=== PATIENT | male | born 1950 | race Caucasian/White ===

== ENCOUNTER → 2019-07-22 11:18 | Outpatient (ROUT) | payer OTHER, SELFPAY ==
[2019-07-22 11:38] LABS: Influenza A - CEPHEID Flu A NEGATIVE (NEGATIVE)
[2019-07-22 11:39] LABS: Influenza B - CEPHEID Flu B NEGATIVE (NEGATIVE)
== END ==
PROVIDERS: Family Provider Family Medicine; PCP Family Medicine; Visit Provider Family Medicine
DX: R05 Cough (principal); R50.9 Fever, unspecified
CPT/HCPCS: 87502

== ENCOUNTER → 2019-10-24 13:23 | Outpatient (CLI) | payer MEDICARE, SELFPAY ==
--- NOTE | 2019-10-24 13:44 | DI.CT.S_ITS ---
PROCEDURE: CT ABDOMEN PELVIS W CON INDICATIONS: unspecified abdominal pain TECHNIQUE: After the administration of oral and intravenous contrast, 5 mm thick sections acquired from the diaphragms to the symphysis. 5 mm thick coronal and sagittal reformats were performed. For radiation dose reduction, the following was used: automated exposure control, adjustment of mA and/or kV according to patient size. COMPARISON: [facility], , CT KUB, 06/06/2006, 14:01. FINDINGS: Image quality: Excellent. ABDOMEN: Lung bases: Lung bases are clear. Heart size is normal. Solid organs: There is hepatic steatosis. Liver is normal in size and enhancement. Gallbladder is normal. Biliary system is non-dilated. Pancreas enhances normally. Spleen is normal in size and enhancement. No adrenal nodules. Kidneys are normal in size and enhancement, without hydronephrosis. There is a 1.3 cm exophytic cortical nodules in the left kidney, most likely a cyst. Peritoneum and bowel: Multiple colonic diverticula present. No CT findings to suggest acute diverticulitis. Normal appendix. Stomach, small bowel, and colon loops are normal in caliber and wall thickness. No free fluid or air. Nodes and vessels: There is mesenteric stranding and numerous small mesenteric lymph nodes. No retroperitoneal or mesenteric adenopathy by size criteria. Aorta and inferior vena cava are normal in caliber. Miscellaneous: No ventral hernias. PELVIS: Genitourinary: Bladder wall thickness is normal. Enlarged prostate. Miscellaneous: No inguinal hernias or adenopathy. Bones: No suspicious bony lesions. Posterior moderate L2 vertebral body compression fracture. IMPRESSION: 1. 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 2. Diverticulosis without diverticulitis. 3. Hepatic steatosis. 3. Old L2 compression fracture of moderate severity. Dictated by: Dameon Crump M.D. on 10/24/2019 at 17:08 Approved by: Dameon Crump M.D. on 10/24/2019 at 17:56
== END ==
PROVIDERS: Family Provider Family Medicine; PCP Family Medicine; Referring Provider Family Medicine; Visit Provider Family Medicine
DX: R10.9 Unspecified abdominal pain (principal); N40.0 Benign prostatic hyperplasia without lower urinary tract symptoms; K76.0 Fatty (change of) liver, not elsewhere classified; K57.90 Diverticulosis of intestine, part unspecified, without perforation or abscess without bleeding; R59.0 Localized enlarged lymph nodes; M48.56XS Collapsed vertebra, not elsewhere classified, lumbar region, sequela of fracture
CPT/HCPCS: 74177; Q9967

== ENCOUNTER → 2020-11-03 09:47 | Outpatient (CLI) | payer MEDICARE, OTHER, SELFPAY ==
[2020-11-03 11:20] LABS: Estimated Glomerular Filt Rate > 60.0 mL/min (>60)
[2020-11-05 14:13] LABS: BUN Creatinine Ratio 16.5 (6-22); Blood Urea Nitrogen 18 mg/dL (9-20)
== END ==
PROVIDERS: PCP Family Medicine; Referring Provider Internal Medicine; Visit Provider Internal Medicine
DX: R93.3 Abnormal findings on diagnostic imaging of other parts of digestive tract (principal); R10.12 Left upper quadrant pain
CPT/HCPCS: 36415; 82565; 84520

== ENCOUNTER → 2020-11-06 09:32 | Outpatient (CLI) | payer MEDICARE, OTHER, SELFPAY ==
--- NOTE | 2020-11-06 10:27 | DI.CT.S_ITS ---
PROCEDURE: CT ABDOMEN PELVIS W CON INDICATIONS: Left upper quadrant pain TECHNIQUE: After the administration of oral Volumen contrast and intravenous contrast, 3 mm thick sections acquired from the diaphragm to the symphysis. Coronal and sagittal 3 mm reformatted images acquired through the small and large bowel. For radiation dose reduction, the following was used: automated exposure control, adjustment of mA and/or kV according to patient size. COMPARISON: [facility], RG, CT KUB, 06/06/2006, 14:01. [facility], CT, CT ABDOMEN PELVIS W CON, 10/24/2019, 14:15. FINDINGS: Image quality: Excellent. ABDOMEN: Lung bases: Lung bases are clear. Heart size is normal. Bowel and peritoneum: Isodense oral contrast is present, and contrast enhanced small bowel loops demonstrate normal wall thickness and caliber. Normal appendix. The transverse colon is redundant. There is mildly increased quantity of solid stool present throughout the colon. There are occasional diverticula in the descending colon and moderate diverticula in the sigmoid. Mild wall thickening of the sigmoid suggesting chronic diverticulitis. No acute inflammatory changes. No free fluid or air. Solid organs: Liver is normal in size and enhancement. Gallbladder is normal . Biliary system is non dilated. The pancreas is normal.. Spleen is normal in size and enhancement. No adrenal nodules. Kidneys demonstrate normal size and enhancement, without hydronephrosis. Cortical exophytic cyst arising from the left kidney. Nodes and vessels: No retroperitoneal or mesenteric adenopathy by size criteria. There is subtle haziness at the base of the small bowel mesentery with mildly prominent, but non bulky adenopathy. Aorta and inferior vena cava are normal in caliber. Moderate abdominal aortic atherosclerotic calcification. Miscellaneous: No ventral hernias. PELVIS: Genitourinary: Mild diffuse bladder wall thickening, nonspecific. Moderate prostatomegaly. Miscellaneous: No inguinal hernias or adenopathy. Bones: No suspicious bony lesions. Chronic appearing L2 compression fracture and degenerative disc and endplate changes at the L1-2 level.. No findings to suggest sacroiliitis. Femoral heads demonstrate no findings of advanced avascular necrosis. IMPRESSION: 1. Findings of chronic sigmoid diverticulitis without acute changes of inflammation. 2. Bowel loops have an otherwise normal appearance. 3. There are chronic in nonspecific changes of hazy small-bowel mesentery (deana mesentery) and mild central mesenteric adenopathy which have only minimally progressed since the remote study from 2005 and are unlikely to be clinically significant given longstanding presence. 4. Mild bladder wall thickening and moderate prostatomegaly may indicate chronic bladder over distension secondary to outlet obstruction. Correlate clinically. Dictated by: Shaneka Sun M.D. on 11/06/2020 at 10:03 Approved by: Shaneka Sun M.D. on 11/06/2020 at 10:16
== END ==
PROVIDERS: PCP Family Medicine; Referring Provider Internal Medicine; Visit Provider Internal Medicine
DX: R93.3 Abnormal findings on diagnostic imaging of other parts of digestive tract (principal); R10.12 Left upper quadrant pain; K57.32 Diverticulitis of large intestine without perforation or abscess without bleeding
CPT/HCPCS: 74177; Q9967